=== PATIENT | female | born 1970 | race African-American/Black ===

== ENCOUNTER 2017-11-18 10:38 | Inpatient (IN) | payer OTHER ==
[~2017-11-18] VITALS: Ht 152.4 cm; Wt 91.6 kg
[2017-11-18 10:47] VITALS: BP 175/94; PULSE 88; RESP 16; TEMP 98.5; O2SAT 99
[2017-11-18] MEDS ORDERED: SODIUM CHLOR 0.9% 1000 ML INJ 1,000 ML IV SCH ×2 (15:27→17:36)
[2017-11-18] MEDS ORDERED: SODIUM CHLORIDE 0.9% FLUSH 10 ML FLUSH IV FLUSH PRN ×2 (15:30→18:45)
[2017-11-18 16:14] VITALS: BP 118/71; PULSE 104; RESP 18; O2SAT 98
[2017-11-18] MEDS ORDERED: VITA400T14 PO (16:20)
[2017-11-18] MEDS ORDERED: LISI10TA3 PO (16:20)
--- NOTE | 2017-11-18 16:29 | PD ---
HPI Chief Complaint: Diabetic Time Seen by Provider: 15:27 Travel History International Travel<30 days: No Contact w/Intl Traveler<30days: No Traveled to known affect area: No History of Present Illness HPI 47-year-old female presents to the ED for evaluation of 1 week history of decreased concentration, intermittent dizziness and mild nausea. She is a diabetic and states that she has not taken any medications and few months. She also complains of urinary urgency. She also complains of the bug bite sustained 3 or 4 days ago while staying in the hotel. She denies headache, vision changes, fever, chills, chest pain, palpitations, shortness of breath, abdominal pain, back pain, vaginal discharge, weakness of the extremities. She states that she is currently traveling between [place] in [place] for training for work. [facility] Past Medical History Diabetes: Yes Patient Takes Glucophage: No Medical other: Yes (hemmoroids ) ?: Unknown Past Surgical History Neurologic Surgery: Yes Social History Alcohol Use: No Tobacco Use: No Substance Use: No Allergies-Medications (Allergen,Severity, Reaction): Coded Allergies: metformin (Verified Allergy, Unknown, 11/18/17) penicillin G (Verified Allergy, Unknown, 11/18/17) Reported Meds & Prescriptions Reported Meds & Active Scripts Active Reported Vitamin D2 (Ergocalciferol) 400 Unit Tab 50,000 Units PO WEEKLY Lisinopril 10 Mg Tab 10 Mg PO DAILY Review of Systems Except as stated in HPI: all other systems reviewed are Neg Physical Exam Narrative GENERAL: Well-nourished, well-developed female in no acute distress. SKIN: Focused skin assessment warm/dry. 2-3 mm erythematous papule in the posterior hairline. Consistent with insect bite. No tenderness, warmth, induration, fluctuance noted. HEAD: Normocephalic. EYES: No scleral icterus. No injection or drainage. PERRLA. EOMI. NECK: Supple, trachea midline. No JVD or lymphadenopathy. CARDIOVASCULAR: Regular rate and rhythm without murmurs, gallops, or rubs. RESPIRATORY: Breath sounds are and equal bilaterally. No accessory muscle use. GASTROINTESTINAL: Abdomen soft, non-tender, nondistended. Active bowel sounds. MUSCULOSKELETAL: No cyanosis, or edema. Observed to walk with a normal gait. NEUROLOGICAL: Awake and alert. Cranial nerves II through XII intact. Motor and sensory grossly within normal limits. Five out of 5 muscle strength in all muscle groups. Normal speech. BACK: Nontender without obvious deformity. No CVA tenderness. Data Data Last Documented VS Vital Signs Date Time Temp Pulse Resp B/P (MAP) Pulse Ox O2 Delivery O2 Flow Rate FiO2 11/18/17 16:49 98 18 114/69 (84) 95 12 115/71 (86) 110 18 146/82 (103) 11/18/17 16:14 98 Room Air 11/18/17 10:47 98.5 Orders Orders Complete Blood Count With Diff (11/18/17 15:27) Comprehensive Metabolic Panel (11/18/17 15:27) Prothrombin Time / Inr (Pt) (11/18/17 15:27) Act Partial Throm Time (Ptt) (11/18/17 15:27) Urinalysis - C+S If Indicated (11/18/17 15:27) Iv Access Insert/Monitor (11/18/17 15:27) Ecg Monitoring (11/18/17 15:27) Oximetry (11/18/17 15:27) Sodium Chlor 0.9% 1000 Ml Inj (Ns 1000 M (11/18/17 15:27) Sodium Chloride 0.9% Flush (Ns Flush) (11/18/17 15:30) Beta Hydroxybutyrate (Acetone) (11/18/17 15:27) Ct Brain W/O Iv Contrast(Rout) (11/18/17 ) Ed Urine Pregnancytest Poc (11/18/17 16:31) Orthostatic Blood Pressure (11/18/17 16:31) Insulin Human Regular Inj (Novolin R Inj (11/18/17 17:45) Sodium Chlor 0.9% 1000 Ml Inj (Ns 1000 M (11/18/17 17:45) Sodium Chlor 0.9% 1000 Ml Inj (Ns 1000 M (11/18/17 17:36) Dext 5%-Nacl 0.9% 1000 Ml Inj (D5w-Ns 10 (11/18/17 17:36) Insulin Regular (Iv Infusion) (Novolin R (11/18/17 17:45) Potassium Chlor 20 Meq Premix (Kcl 20 Me (11/18/17 17:45) Potassium Chlor 20 Meq Premix (Kcl 20 Me (11/18/17 17:45) Potassium Chlor 20 Meq Premix (Kcl 20 Me (11/18/17 17:45) Potassium Chlor 20 Meq Premix (Kcl 20 Me (11/18/17 17:45) Hemoglobin (Hgb) A1c (11/18/17 17:36) Arterial Blood Gas (Abg) (11/18/17 ) Admit Order (Ed Use Only) (11/18/17 17:43) Labs Laboratory Tests Test 11/18/17 16:00 11/18/17 16:13 Urine Color LIGHT-YELLOW Urine Turbidity CLEAR Urine pH 5.0 Urine Specific [place] 1.033 Urine Protein NEG mg/dL Urine Glucose (UA) 1000 mg/dL Urine Ketones 40 mg/dL Urine Occult Blood NEG Urine Nitrite NEG Urine Bilirubin NEG Urine Urobilinogen LESS THAN 2.0 MG/DL Urine Leukocyte Esterase NEG Urine RBC 1 /hpf Urine WBC LESS THAN 1 /hpf Urine Squamous Epithelial Cells <1 /hpf Urine Amorphous Sediment RARE Microscopic Urinalysis Comment CULT NOT INDICATED White Blood Count 4.6 TH/MM3 Red Blood Count 5.64 MIL/MM3 Hemoglobin 12.5 GM/DL Hematocrit 39.8 % Mean Corpuscular Volume 70.6 FL Mean Corpuscular Hemoglobin 22.1 PG Mean Corpuscular Hemoglobin Concent 31.3 % Red Cell Distribution Width 19.4 % Platelet Count 172 TH/MM3 Mean Platelet Volume 10.8 FL Neutrophils (%) (Auto) 58.4 % Lymphocytes (%) (Auto) 34.3 % Monocytes (%) (Auto) 6.1 % Eosinophils (%) (Auto) 0.6 % Basophils (%) (Auto) 0.6 % Neutrophils # (Auto) 2.7 TH/MM3 Lymphocytes # (Auto) 1.6 TH/MM3 Monocytes # (Auto) 0.3 TH/MM3 Eosinophils # (Auto) 0.0 TH/MM3 Basophils # (Auto) 0.0 TH/MM3 CBC Comment AUTO DIFF Differential Comment AUTO DIFF CONFIRMED Platelet Estimate NORMAL Platelet Morphology Comment NORMAL Tear Drop Cells 1+ Ovalocytes 1+ Prothrombin Time 10.4 SEC Prothromb Time International Ratio 1.0 RATIO Activated Partial Thromboplast Time 25.1 SEC Blood Urea Nitrogen 16 MG/DL Creatinine 1.42 MG/DL Random Glucose 400 MG/DL Total Protein 7.8 GM/DL Albumin 3.9 GM/DL Calcium Level 9.5 MG/DL Alkaline Phosphatase 108 U/L Aspartate Amino Transf (AST/SGOT) 31 U/L Alanine Aminotransferase (ALT/SGPT) 47 U/L Total Bilirubin 0.4 MG/DL Sodium Level 136 MEQ/L Potassium Level 4.3 MEQ/L Chloride Level 101 MEQ/L Carbon Dioxide Level 23.6 MEQ/L Anion Gap 11 MEQ/L Estimat Glomerular Filtration Rate 48 ML/MIN B-Hydroxybutyrate 1.56 MMOL/L MDM Medical Decision Making Medical Screen Exam Complete: Yes Emergency Medical Condition: Yes Differential Diagnosis DKA versus hyperglycemia versus noncompliance versus metabolic derangement versus other Narrative Course 47-year-old female presents to the ED for evaluation of 1 week history of decreased concentration, intermittent dizziness and mild nausea. She is a diabetic and states that she has not taken any medications and few months. She also complains of urinary urgency. She also complains of the bug bite sustained 3 or 4 days ago while staying in the hotel. Patient afebrile, pulse 88, BP 175/94, blood sugar 351 on arrival. On exam this is a Afro-[place] female in no acute distress. Chest CTAB. Abdomen soft and nontender. No lower extremity edema. IV is established. Patient was administered 1 L normal saline. CBC: CBC 4.6. Hemoglobin 12.5. INR: 1.0. CMP: BUN 16, creatinine 1.42. Glucose 400. UA: No culture indicated. Beta hydroxybutyrate 1.56. Patient was administered 8 units insulin bolus IV and initiated on insulin drip. I discussed the results of the workup with the patient and recommended observation overnight. She is agreeable to this plan. I spoke with Dr. Herrera who agrees to accept the patient to the medicine service. Please see medicine notes for disposition. Mary Ann Branch Nov 18, 2017 16:29
[2017-11-18 16:32] LABS: AMORPHOUS SEDIMENT, URINE RARE; BILIRUBIN, URINE NEG (NEG); BLOOD, URINE NEG (NEG); GLUCOSE,URINE 1000 mg/dL (NEG); KETONE, URINE 40 mg/dL (NEG); NITRITE,URINE NEG (NEG); SQUAMOUS EPITHELIAL CELL URINE <1 /hpf (0-5); URINE COLOR LIGHT-YELLOW (YELLW/STRAW); URINE LEUKOCYTE ESTERASE NEG (NEG)
[2017-11-18 16:46] LABS: PROTHROMBIN TIME - PATIENT 10.4 SEC (9.8-11.6)
[2017-11-18 16:49] VITALS: BP_SYST 114; BP_SYST 115; BP_SYST 146; BP_DIAS 69; BP_DIAS 71; BP_DIAS 82; RESP 12; RESP 18
[2017-11-18 17:12] LABS: AUTOMATED NEUTROPHIL # 2.7 TH/MM3 (1.8-7.7); BASOPHIL % 0.6 % (0.0-2.0); EOSINOPHIL % 0.6 % (0.0-4.0); HEMATOCRIT 39.8 % (35.0-46.0); HEMOGLOBIN 12.5 GM/DL (11.6-15.3); LYMPH % 34.3 % (9.0-44.0); LYMPHOCYTE # 1.6 TH/MM3 (1.0-4.8); MEAN CELL VOLUME 70.6 FL (80.0-100.0); MEAN CORPUSCULAR HEMOGLOBIN 22.1 PG (27.0-34.0); MEAN CORPUSCULAR HGB CONC 31.3 % (32.0-36.0); MEAN PLATELET VOLUME 10.8 FL (7.0-11.0); MONO % 6.1 % (0.0-8.0); MONOCYTE # 0.3 TH/MM3 (0-0.9); NEUT % 58.4 % (16.0-70.0); PLATELET COUNT 172 TH/MM3 (150-450); RED BLOOD COUNT 5.64 MIL/MM3 (4.00-5.30); RED CELL DISTRIBUTION WIDTH 19.4 % (11.6-17.2); WHITE BLOOD COUNT 4.6 TH/MM3 (4.0-11.0)
[2017-11-18 17:14] LABS: ALKALINE PHOSPHATASE 108 U/L (45-117); TOTAL BILIRUBIN ADULT 0.4 MG/DL (0.2-1.0); TOTAL PROTEIN 7.8 GM/DL (6.4-8.2)
[2017-11-18 17:29] LABS: ALBUMIN 3.9 GM/DL (3.4-5.0); ALT (GPT) 47 U/L (10-53); AST (GOT) 31 U/L (15-37); BICARBONATE 23.6 MEQ/L (21.0-32.0); BLOOD UREA NITROGEN 16 MG/DL (7-18); CALCIUM 9.5 MG/DL (8.5-10.1); CHLORIDE 101 MEQ/L (98-107); CREATININE 1.42 MG/DL (0.50-1.00); GLOMERULAR FILTRATION RATE 48 ML/MIN (>89); GLUCOSE,RANDOM 400 MG/DL (74-106); SODIUM (NA) 136 MEQ/L (136-145)
[2017-11-18] MEDS ORDERED: DEXT 5%-NACL 0.9% 1000 ML INJ 1,000 ML IV SCH (17:36)
[2017-11-18] MEDS ORDERED: INSULIN REGULAR (IV INFUSION) 100 UNITS in SODIUM CHLORIDE 0.9% INJ 99 ML IV PRN ×2 (17:45→18:30)
[2017-11-18] MEDS ORDERED: SODIUM CHLOR 0.9% 1000 ML INJ 1,000 ML IV ONE (17:45)
[2017-11-18] MEDS ORDERED: POTASSIUM CHLOR 20 MEQ PREMIX 100 ML IV PRN ×4 (17:45)
[2017-11-18] MEDS ORDERED: INSULIN HUMAN REGULAR 1,000 UNITS/10 ML VIAL IV PUSH ONE (17:45)
--- NOTE | 2017-11-18 18:03 | PD ---
Physical Exam Date Seen by Provider: Nov 18, 2017 Time Seen by Provider: 17:00 Narrative I, Dr. Wang, have reviewed the advance practice practitioner's documentation and am in agreement, met with the patient face to face, made the diagnosis, and the medical decision making was done by me. *My assessment and Findings: Patient seen and evaluated with PA, please see PA note for further details. She has not been feeling well, nauseous, abdominal discomfort, not feeling right, blood sugars have been out of control, she has not been able to get her diabetes medications fail. On evaluation, abdomen is fairly benign. The rest of the exam was fairly unremarkable and I do not see any focal neurological deficits. Laboratory Tests Test 11/18/17 16:00 11/18/17 16:13 Urine Glucose (UA) 1000 mg/dL (NEG) Urine Ketones 40 mg/dL (NEG) Red Blood Count 5.64 MIL/MM3 (4.00-5.30) Mean Corpuscular Volume 70.6 FL (80.0-100.0) Mean Corpuscular Hemoglobin 22.1 PG (27.0-34.0) Mean Corpuscular Hemoglobin Concent 31.3 % (32.0-36.0) Red Cell Distribution Width 19.4 % (11.6-17.2) Creatinine 1.42 MG/DL (0.50-1.00) Random Glucose 400 MG/DL (74-106) Estimat Glomerular Filtration Rate 48 ML/MIN (>89) B-Hydroxybutyrate 1.56 MMOL/L (0.00-0.39) Lab work shows blood sugar 400 and ketones are elevated. IV fluids and insulin was given in the ER. CAT scan was also ordered for further evaluation of the abdomen. Case is discussed with Dr. Herrera for admission for further treatment. Hyperglycemia protocol initiated. Data Data Last Documented VS Vital Signs Date Time Temp Pulse Resp B/P (MAP) Pulse Ox O2 Delivery O2 Flow Rate FiO2 11/18/17 16:49 98 18 114/69 (84) 95 12 115/71 (86) 110 18 146/82 (103) 11/18/17 16:14 98 Room Air 11/18/17 10:47 98.5 Orders Orders Complete Blood Count With Diff (11/18/17 15:27) Comprehensive Metabolic Panel (11/18/17 15:27) Prothrombin Time / Inr (Pt) (11/18/17 15:27) Act Partial Throm Time (Ptt) (11/18/17 15:27) Urinalysis - C+S If Indicated (11/18/17 15:27) Iv Access Insert/Monitor (11/18/17 15:27) Ecg Monitoring (11/18/17 15:27) Oximetry (11/18/17 15:27) Sodium Chlor 0.9% 1000 Ml Inj (Ns 1000 M (11/18/17 15:27) Sodium Chloride 0.9% Flush (Ns Flush) (11/18/17 15:30) Beta Hydroxybutyrate (Acetone) (11/18/17 15:27) Ct Brain W/O Iv Contrast(Rout) (11/18/17 ) Ed Urine Pregnancytest Poc (11/18/17 16:31) Orthostatic Blood Pressure (11/18/17 16:31) Insulin Human Regular Inj (Novolin R Inj (11/18/17 17:45) Sodium Chlor 0.9% 1000 Ml Inj (Ns 1000 M (11/18/17 17:45) Sodium Chlor 0.9% 1000 Ml Inj (Ns 1000 M (11/18/17 17:36) Dext 5%-Nacl 0.9% 1000 Ml Inj (D5w-Ns 10 (11/18/17 17:36) Insulin Regular (Iv Infusion) (Novolin R (11/18/17 17:45) Potassium Chlor 20 Meq Premix (Kcl 20 Me (11/18/17 17:45) Potassium Chlor 20 Meq Premix (Kcl 20 Me (11/18/17 17:45) Potassium Chlor 20 Meq Premix (Kcl 20 Me (11/18/17 17:45) Potassium Chlor 20 Meq Premix (Kcl 20 Me (11/18/17 17:45) Hemoglobin (Hgb) A1c (11/18/17 17:36) Arterial Blood Gas (Abg) (11/18/17 ) Admit Order (Ed Use Only) (11/18/17 17:43) Labs Laboratory Tests Test 11/18/17 16:00 11/18/17 16:13 Urine Color LIGHT-YELLOW Urine Turbidity CLEAR Urine pH 5.0 Urine Specific [place] 1.033 Urine Protein NEG mg/dL Urine Glucose (UA) 1000 mg/dL Urine Ketones 40 mg/dL Urine Occult Blood NEG Urine Nitrite NEG Urine Bilirubin NEG Urine Urobilinogen LESS THAN 2.0 MG/DL Urine Leukocyte Esterase NEG Urine RBC 1 /hpf Urine WBC LESS THAN 1 /hpf Urine Squamous Epithelial Cells <1 /hpf Urine Amorphous Sediment RARE Microscopic Urinalysis Comment CULT NOT INDICATED White Blood Count 4.6 TH/MM3 Red Blood Count 5.64 MIL/MM3 Hemoglobin 12.5 GM/DL Hematocrit 39.8 % Mean Corpuscular Volume 70.6 FL Mean Corpuscular Hemoglobin 22.1 PG Mean Corpuscular Hemoglobin Concent 31.3 % Red Cell Distribution Width 19.4 % Platelet Count 172 TH/MM3 Mean Platelet Volume 10.8 FL Neutrophils (%) (Auto) 58.4 % Lymphocytes (%) (Auto) 34.3 % Monocytes (%) (Auto) 6.1 % Eosinophils (%) (Auto) 0.6 % Basophils (%) (Auto) 0.6 % Neutrophils # (Auto) 2.7 TH/MM3 Lymphocytes # (Auto) 1.6 TH/MM3 Monocytes # (Auto) 0.3 TH/MM3 Eosinophils # (Auto) 0.0 TH/MM3 Basophils # (Auto) 0.0 TH/MM3 CBC Comment AUTO DIFF Prothrombin Time 10.4 SEC Prothromb Time International Ratio 1.0 RATIO Activated Partial Thromboplast Time 25.1 SEC Blood Urea Nitrogen 16 MG/DL Creatinine 1.42 MG/DL Random Glucose 400 MG/DL Total Protein 7.8 GM/DL Albumin 3.9 GM/DL Calcium Level 9.5 MG/DL Alkaline Phosphatase 108 U/L Aspartate Amino Transf (AST/SGOT) 31 U/L Alanine Aminotransferase (ALT/SGPT) 47 U/L Total Bilirubin 0.4 MG/DL Sodium Level 136 MEQ/L Potassium Level 4.3 MEQ/L Chloride Level 101 MEQ/L Carbon Dioxide Level 23.6 MEQ/L Anion Gap 11 MEQ/L Estimat Glomerular Filtration Rate 48 ML/MIN B-Hydroxybutyrate 1.56 MMOL/L [facility] Medical Record Reviewed: Yes Supervised Visit with DAVID: Yes Diagnosis Primary Impression: DKA (diabetic ketoacidoses) Admitting Information Admitting Physician Requests: Admit Leighton Wang MD Nov 18, 2017 18:03
[2017-11-18 18:04] LABS: OVALOCYTES 1+ (NORMAL); TEARDROP RBCS 1+ (NORMAL)
[2017-11-18] MEDS ORDERED: MISC INFORMATION OTHER ONE (18:30)
[2017-11-18] MEDS ORDERED: DEXTROSE 50% IN WATER 50 ML VIAL(D50) IV PUSH PRN ×2 (18:30→20:45)
[2017-11-18] MEDS ORDERED: GLUCAGON 1 MG/ML VIAL OTHER PRN ×2 (18:30→20:45)
[2017-11-18] MEDS ORDERED: NALOXONE HCL 0.4 MG/ML AMP IV PUSH PRN (18:45)
[2017-11-18] MEDS ORDERED: LACTULOSE SYRUP 20 GM/30 ML CUP PO PRN (18:45)
[2017-11-18] MEDS ORDERED: oxyCODONE/ACETAMINOPHEN 5 MG/325 MG TAB PO PRN (18:45)
[2017-11-18] MEDS ORDERED: ACETAMINOPHEN 325 MG TAB PO PRN ×2 (18:45)
[2017-11-18] MEDS ORDERED: BISACODYL 10 MG SUPP RECTAL PRN (18:45)
[2017-11-18] MEDS ORDERED: MAGNESIUM HYDROXIDE SUSP 30 ML CUP PO PRN (18:45)
[2017-11-18] MEDS ORDERED: ZOLPIDEM TARTRATE 5 MG TAB PO PRN (18:45)
[2017-11-18] MEDS ORDERED: PROCHLORPERAZINE 25 MG SUPP RECTAL PRN (18:45)
[2017-11-18] MEDS ORDERED: SENNOSIDES 8.6 MG TAB PO PRN (18:45)
[2017-11-18] MEDS ORDERED: oxyCODONE/ACETAMINOPHEN 10 MG/325 MG TAB PO PRN (18:45)
[2017-11-18] MEDS ORDERED: MORPHINE SULFATE 2 MG/ML SYRINGE IV PUSH PRN (18:45)
--- NOTE | 2017-11-18 18:51 | HHI.HP ---
[facility] Non-Staff Admission Diagnosis hyperglycemia Diagnoses: (1) Hyperglycemia Diagnosis: Principal (2) Hyperglycemia due to type 2 diabetes mellitus Diagnosis: Principal (3) Hypertension Diagnosis: Secondary (4) Renal insufficiency Diagnosis: Principal (5) CKD (chronic kidney disease) stage 2, GFR 60-89 ml/min Diagnosis: Principal (6) Obese Diagnosis: Secondary (7) Noncompliance Diagnosis: Principal Chief Complaint: Diabetes and hyperglycemia Travel History International Travel<30 Days: No Contact w/Intl Traveler <30 Da: No Traveled to Known Affected Are: No History of Present Illness Patient is a 47-year-old -[place] female who presented to the emergency department for evaluation of at least a week history of decreased concentration , intermittent dizziness and mild nausea. Patient is a known diabetic and has not been taking any medication for the past few months. She also complains of urinary urgency. Also complains of a bug bite sustained for 4 days ago while staying in a hotel. Patient denies any headache she denies any visual changes denies any fever denies any chills denies any chest pain denies any palpitations denies any shortness of breath denies any abdominal pain denies any back pain denies any vaginal discharge denies any weakness of extremities. Patient states she is traveling between [place] in [place] for training for work has moved down here from [place] recently Had been on 2 diabetic medications which he stopped and was taking lisinopril possibly 10 mg daily as well as a vitamin D Patient will be placed on an insulin drip as well as lots of fluids. Hopefully her hyperglycemia will improve tomorrow and possibly can be placed on glipizide or Glucotrol for her diabetes and be sent home in the next 24-48 Review of Systems Constitutional: COMPLAINS OF: Fatigue, Dizziness, Change in appetite, DENIES: Diaphoretic episodes, Fever, Weight gain, Weight loss, Chills, Night Sweats Endocrine: DENIES: Abnorml menstrual pattern, Heat/cold intolerance, Polydipsia , Polyuria, Polyphagia Eyes: DENIES: Blurred vision, Diplopia, Eye inflammation, Eye pain, Vision loss , Photosensitivity, Double Vision Ears, nose, mouth, throat: DENIES: Tinnitus, Hearing loss, Vertigo, Nasal discharge, Oral lesions, Throat pain, Hoarseness, Ear Pain, Running Nose, Epistaxis, Sinus Pain, Toothache, Odynophagia Respiratory: DENIES: Apneas, Cough, Snoring, Wheezing, Hemoptysis, Sputum production, Shortness of breath Cardiovascular: DENIES: Chest pain, Palpitations, Syncope, Dyspnea on Exertion , PND, Lower Extremity Edema, Orthopnea, Claudication Gastrointestinal: COMPLAINS OF: Nausea, DENIES: Abdominal pain, Black stools, Bloody stools, Constipation, Diarrhea, Vomiting, Difficulty Swallowing, Anorexia Genitourinary: COMPLAINS OF: Urinary frequency, DENIES: Abnormal vaginal bleeding, Dysmenorrhea, Dyspareunia, Sexual dysfunction, Urinary incontinence, Urgency, Hematuria, Dysuria, Nocturia, Vaginal discharge Musculoskeletal: DENIES: Joint pain, Muscle aches, Stiffness, Joint Swelling, Back pain, Neck pain Integumentary: DENIES: Abnormal pigmentation, Pruritus, Rash, Nail changes, Breast masses, Breast skin changes, Nipple discharge Hematologic/lymphatic: DENIES: Bruising, Lymphadenopathy Immunologic/allergic: DENIES: Eczema, Urticaria Neurologic: DENIES: Abnormal gait, Headache, Localized weakness, Paresthesias, Seizures, Speech Problems, Tremor, Poor Balance Psychiatric: DENIES: Anxiety, Confusion, Mood changes, Depression, Hallucinations, Agitation, Suicidal Ideation, Homicidal Ideation, Delusions Except as stated in HPI: all other systems reviewed are Neg Past Family Social History Past Medical History Diabetes mellitus poorly controlled Hypertension Renal insufficiency with history of bladder corrective surgery when she was younger Vitamin D issues Past Surgical History Urological surgery to correct issues with urinary retention/urinary incontinence Reported Medications Reported Meds & Active Scripts Active Reported Vitamin D2 (Ergocalciferol) 400 Unit Tab 50,000 Units PO WEEKLY Lisinopril 10 Mg Tab 10 Mg PO DAILY Allergies: Coded Allergies: metformin (Verified Allergy, Unknown, 11/18/17) penicillin G (Verified Allergy, Unknown, 11/18/17) Active Ordered Medications Inpatient Medications Acetaminophen (Tylenol) 650 mg Q6H PRN PO PAIN SCALE 1 TO 2; Start 11/18/17 at 18:45; Status UNV Bisacodyl (Dulcolax Supp) 10 mg DAILY PRN RECTAL SEVERE CONSITIPATION; Start at 18:45; Status UNV Dextrose (D50w (Vial) Inj) 50 ml UNSCH PRN IV PUSH SEE LABEL COMMENTS; Start at 18:30; Status UNV Dextrose/Sodium Chloride 1,000 ml @ 200 mls/hr Q5H IV ; Start 11/18/17 at 17:36 Enoxaparin Sodium (Lovenox Inj) 30 mg Q24H SQ ; Start 11/18/17 at 18:45; Status UNV Glucagon (Glucagon Inj) 1 mg UNSCH PRN OTHER HYPOGLYCEMIA-SEE COMMENTS; Start 11/18/17 at 18:30; Status UNV Insulin Human Regular (NovoLIN R INJ) 8 units ONCE ONCE IV PUSH Last administered on 11/18/17at 18:33; Start 11/18/17 at 17:45; Stop 11/18/17 at 17:46 ; Status DC Insulin Human Regular 100 units/ Sodium Chloride 100 ml @ 0.5 mls/hr TITRATE PRN IV Blood Glucose Control; Start 11/18/17 at 18:30; Status UNV Lactulose (Lactulose Liq) 30 ml DAILY PRN PO SEVERE CONSITIPATION; Start at 18:45; Status UNV Magnesium Hydroxide (Milk Of Magnesia Liq) 30 ml Q12H PRN PO Mild constipation ; Start 11/18/17 at 18:45; Status UNV Miscellaneous Information 1 ONCE ONCE OTHER ; Start 11/18/17 at 18:30; Stop at 18:31; Status UNV Morphine Sulfate (Morphine Inj) 4 mg Q3H PRN IV PUSH BREAKTHROUGH PAIN; Start 11/18/17 at 18:45; Status UNV Naloxone HCl (Narcan Inj) 0.4 mg UNSCH PRN IV PUSH SEE LABEL COMMENTS; Start at 18:45; Status UNV Non-Formulary Medication 50,000 units WEEKLY PO ; Start 11/18/17 at 18:45; Status UNV Ondansetron HCl (Zofran Inj) 4 mg Q6H PRN IVP NAUSEA OR VOMITING; Start at 18:45; Status UNV Oxycodone/ Acetaminophen (Percocet 5-325 Mg) 1 tab Q6H PRN PO PAIN SCALE 3 TO 5; Start 11/18/17 at 18:45; Status UNV Oxycodone/ Acetaminophen (Percocet 10-325 Mg) 1 tab Q6H PRN PO PAIN SCALE 6 TO 10; Start 11/18/17 at 18:45; Status UNV Potassium Chloride 100 ml @ 50 mls/hr Q2H PRN IV SEE LABEL COMMENTS; Start at 17:45 Prochlorperazine (Compazine Supp) [address] NAUSEA OR VOMITING; Start 11/18/17 at 18:45; Status UNV Senna/Docusate Sodium (Marie-Colace) 1 tab BID PO ; Start 11/18/17 at 21:00; Status UNV Sennosides (Senokot) 17.2 mg Q12H PRN PO Moderate constipation; Start 11/18/17 at 18:45; Status UNV Sodium Chloride (NS Flush) 2 ml BID IV FLUSH ; Start 11/18/17 at 21:00; Status UNV Zolpidem Tartrate (Ambien) 5 mg HS PRN PO INSOMNIA; Start 11/18/17 at 18:45; Status UNV Family History Mother with diabetes Hypertension Hyperlipidemia Coronary artery disease and history of CABG Renal insufficiency Father unknown Social History Denies any tobacco alcohol or illicits Physical Exam Vital Signs Vital Signs Date Time Temp Pulse Resp B/P (MAP) Pulse Ox O2 Delivery O2 Flow Rate FiO2 11/18/17 16:49 98 18 114/69 (84) 95 12 115/71 (86) 110 18 146/82 (103) 11/18/17 16:14 104 18 118/71 (87) 98 Room Air 11/18/17 10:47 98.5 88 16 175/94 (121) 99 Physical Exam GENERAL: This is a well-nourished, well-developed patient, in no apparent distress. SKIN: No rashes, ecchymoses or lesions. Cool and dry. HEAD: Atraumatic. Normocephalic. No temporal or scalp tenderness. EYES: Pupils equal round and reactive. Extraocular motions intact. No scleral icterus. No injection or drainage. ENT: Nose without bleeding, purulent drainage or septal hematoma. Throat without erythema, tonsillar hypertrophy or exudate. Uvula midline. Airway patent. NECK: Trachea midline. No JVD or lymphadenopathy. Supple, nontender, no meningeal signs. CARDIOVASCULAR: Regular rate and rhythm without murmurs, gallops, or rubs. S1- S2 no S3 or S4 RESPIRATORY: Clear to auscultation. Breath sounds equal bilaterally. No wheezes , rales, or rhonchi. GASTROINTESTINAL: Abdomen soft, non-tender, nondistended. No hepato-splenomegaly , or palpable masses. No guarding. Obese MUSCULOSKELETAL: Extremities without clubbing, cyanosis, or edema. No joint tenderness, effusion, or edema noted. No calf tenderness. Negative Homans sign bilaterally. NEUROLOGICAL: Awake and alert. Cranial nerves II through XII intact. Motor and sensory grossly within normal limits. Five out of 5 muscle strength in all muscle groups. Normal speech. Insight and judgment is good Mood and behavior is appropriate Laboratory Laboratory Tests Test 11/18/17 16:00 11/18/17 16:13 11/18/17 18:15 Urine Color LIGHT-YELLOW Urine Turbidity CLEAR Urine pH 5.0 Urine Specific S [place] 1.033 Urine Protein NEG Urine Glucose (UA) 1000 Urine Ketones 40 Urine Occult Blood NEG Urine Nitrite NEG Urine Bilirubin NEG Urine Urobilinogen LESS THAN 2.0 Urine Leukocyte Esterase NEG Urine RBC 1 Urine WBC LESS THAN 1 Urine Squamous Epithelial Cells <1 Urine Amorphous Sediment RARE Microscopic Urinalysis Comment CULT NOT INDICATED White Blood Count 4.6 Red Blood Count 5.64 Hemoglobin 12.5 Hematocrit 39.8 Mean Corpuscular Volume 70.6 Mean Corpuscular Hemoglobin 22.1 Mean Corpuscular Hemoglobin Concent 31.3 Red Cell Distribution Width 19.4 Platelet Count 172 Mean Platelet Volume 10.8 Neutrophils (%) (Auto) 58.4 Lymphocytes (%) (Auto) 34.3 Monocytes (%) (Auto) 6.1 Eosinophils (%) (Auto) 0.6 Basophils (%) (Auto) 0.6 Neutrophils # (Auto) 2.7 Lymphocytes # (Auto) 1.6 Monocytes # (Auto) 0.3 Eosinophils # (Auto) 0.0 Basophils # (Auto) 0.0 CBC Comment AUTO DIFF Differential Comment AUTO DIFF CONFIRMED Platelet Estimate NORMAL Platelet Morphology Comment NORMAL Tear Drop Cells 1+ Ovalocytes 1+ Prothrombin Time 10.4 Prothromb Time International Ratio 1.0 Activated Partial Thromboplast Time 25.1 Blood Urea Nitrogen 16 Creatinine 1.42 Random Glucose 400 Total Protein 7.8 Albumin 3.9 Calcium Level 9.5 Alkaline Phosphatase 108 Aspartate Amino Transf (AST/SGOT) 31 Alanine Aminotransferase (ALT/SGPT) 47 Total Bilirubin 0.4 Sodium Level 136 Potassium Level 4.3 Chloride Level 101 Carbon Dioxide Level 23.6 Anion Gap 11 Estimat Glomerular Filtration Rate 48 B-Hydroxybutyrate 1.56 Blood Gas Puncture Site RT RADIAL Blood Gas Patient Temperature 98.6 Blood Gas HCO3 19 Blood Gas Base Excess -4.4 Blood Gas Oxygen Saturation 97 Arterial Blood pH 7.41 Arterial Blood Partial Pressure CO2 31 Arterial Blood Partial Pressure O2 124 Arterial Blood Oxygen Content 15.2 Arterial Blood Carboxyhemoglobin 1.0 Arterial Blood Methemoglobin 0.8 Blood Gas Hemoglobin 11.0 Oxygen Delivery Device ROOM AIR Blood Gas Inspired Oxygen 21 Result Diagram: 11/18/17 1613 11/18/17 161 Andrésrinjak VTE Risk Assessment Joe VTE Risk Assessment: Mod/High Risk (score >= 2) Caprini Risk Assessment Model Point Value = 1 Point Value = 2 Point Value = 3 Point Value = 5 Age 41-60 Minor surgery BMI > 25 kg/m2 Swollen legs Varicose veins or History of unexplained or recurrent spontaneous Oral contraceptives or hormone replacement Sepsis (< 1 month) Serious lung disease, including pneumonia (< 1 month) Abnormal pulmonary function Acute myocardial infarction Congestive heart failure (< 1 month) History of inflammatory bowel disease Medical patient at bed rest Age 61-74 Arthroscopic surgery Major open surgery (> 45 min) Laparoscopic surgery (> 45 min) Malignancy Confined to bed (> 72 hours) Immobilizing plaster cast Central venous access Age >= 75 History of VTE Family history of VTE Factor V Leiden Prothrombin [id number] Lupus anticoagulant Anticardiolipin antibodies Elevated serum homocysteine Heparin-induced thrombocytopenia Other congenital or acquired thrombophilia Stroke (< 1 month) Elective arthroplasty Hip, pelvis, or leg fracture Acute spinal cord injury (< 1 month) Prophylaxis Regimen Total Risk Factor Score Risk Level Prophylaxis Regimen 0-1 Low Early ambulation 2 Moderate Order ONE of the following: *Sequential Compression Device (SCD) *Heparin 5000 units SQ BID 3-4 Higher Order ONE of the following medications: *Heparin 5000 units SQ TID *Enoxaparin/Lovenox 40 mg SQ daily (WT < 150 kg, CrCl > 30 mL/min) *Enoxaparin/Lovenox 30 mg SQ daily (WT < 150 kg, CrCl > 10-29 mL/min) *Enoxaparin/Lovenox 30 mg SQ BID (WT < 150 kg, CrCl > 30 mL/min) AND/OR *Sequential Compression Device (SCD) 5 or more Highest Order ONE of the following medications: *Heparin 5000 units SQ TID (Preferred with Epidurals) *Enoxaparin/Lovenox 40 mg SQ daily (WT < 150 kg, CrCl > 30 mL/min) *Enoxaparin/Lovenox 30 mg SQ daily (WT < 150 kg, CrCl > 10-29 mL/min) *Enoxaparin/Lovenox 30 mg SQ BID (WT < 150 kg, CrCl > 30 mL/min) AND *Sequential Compression Device (SCD) Assessment and Plan Assessment and Plan Uncontrolled diabetes due to noncompliance of medication Continue on IV fluids 200 mL's per hour of normal saline Continue on insulin drip Renal insufficiency continue on IV fluids Dehydration continue on IV fluids Hypertension have available Catapres and hold her lisinopril due to renal insufficiency Vitamin D deficiency continue home medication Will probably need to be started on p.o. glycemic medications will either glipizide or Glucotrol DVT prophylaxis with heparin GI prophylaxis with Pepcid Code Status full code Discussed Condition With RN AND PT AND PA AND ER PHYSICIAN AND FAMILY AT BEDSIDE Physician Certification 2 Midnight Certification Type: Admission for Inpatient Services Order for Inpatient Services The services are ordered in accordance with Medicare regulations or non- Medicare payer requirements, as applicable. In the case of services not specified as inpatient-only, they are appropriately provided as inpatient services in accordance with the 2-midnight benchmark. Estimated LOS (days): 2 days is the estimated time the patient will need to remain in the hospital, assuming treatment plan goals are met and no additional complications. Post-Hospital Plan: Home Rj Herrera DO Nov 18, 2017 18:51
[2017-11-18 19:06] VITALS: BP 134/90; PULSE 90; RESP 14; O2SAT 100
--- NOTE | 2017-11-18 19:11 | RADRPT ---
EXAM DATE/TIME: 11/18/2017 18:52 [facility] COMPARISON: No previous studies available for comparison. INDICATIONS : Patient feeling poorly. RADIATION DOSE: 56.35 CTDIvol (mGy) MEDICAL HISTORY : Diabetes mellitus type 2. SURGICAL HISTORY : None. ENCOUNTER: Initial ACUITY: 1 day PAIN SCALE: 1/10 LOCATION: Bilateral cranial TECHNIQUE: Multiple contiguous axial images were obtained of the head. Using automated exposure control and adj ustment of the mA and/or kV according to patient size, radiation dose was kept as low as reasonably a chievable to obtain optimal diagnostic quality images. DICOM format image data is available electro nically for review and comparison. FINDINGS: CEREBRUM: The ventricles are normal for age. No evidence of midline shift, mass lesion, hemorrhage or acute in farction. No extra-axial fluid collections are seen. POSTERIOR FOSSA: The cerebellum and brainstem are intact. The 4th ventricle is midline. The cerebellopontine angle i s unremarkable. EXTRACRANIAL: The visualized portion of the orbits is intact. SKULL: The calvaria is intact. No evidence of skull fracture. CONCLUSION: No acute disease. Mendel Johnson MD on November 18, 2017 at 19:09 Board Certified Radiologist. This report was verified electronically.
[2017-11-18] MEDS ORDERED: MORPHINE SULFATE 4 MG/ML INJ IV PUSH PRN ×2 (19:15)
[2017-11-18] MEDS ORDERED: PILL SPLITTER OTHER PRN (19:15)
[2017-11-18 20:00] VITALS: BP 113/72; PULSE 78; RESP 20; TEMP 96.4; O2SAT 99
[2017-11-18] MEDS: ENOXAPARIN SODIUM 40 MG/0.4 ML SYRINGE SQ SCH (20:00)
[2017-11-18] MEDS: SODIUM CHLORIDE 0.9% FLUSH 10 ML FLUSH IV FLUSH SCH (21:13)
[2017-11-18] MEDS: SODIUM CHLOR 0.9% 1000 ML INJ 1,000 ML IV SCH (21:13)
[2017-11-18] MEDS: INSULIN ASPART SUPPLEMENTAL SCALE SQ SCH (21:14)
[2017-11-18] MEDS: FAMOTIDINE 20 MG TAB PO SCH (21:14)
[2017-11-18] MEDS: DOCUSATE SODIUM 50 MG/SENNA 8.6 MG TAB PO SCH (21:14)
[2017-11-18] MEDS: ONDANSETRON HCL 4 MG/2 ML VIAL IVP PRN (21:15)
[2017-11-18 22:36] LABS: BICARBONATE 23.4 MEQ/L (21.0-32.0); CALCIUM 8.2 MG/DL (8.5-10.1); CREATININE 1.02 MG/DL (0.50-1.00)
[2017-11-18 23:44] LABS: TROPONIN I LESS THAN 0.02 NG/ML (0.02-0.05)
[2017-11-19] MEDS: SODIUM CHLOR 0.9% 1000 ML INJ 1,000 ML IV SCH ×4 (00:35→21:02)
[2017-11-19] MEDS: ONDANSETRON HCL 4 MG/2 ML VIAL IVP PRN ×3 (07:53→21:12)
[2017-11-19 08:00] VITALS: BP 123/73; PULSE 83; RESP 16; TEMP 96.9; O2SAT 99
[2017-11-19] MEDS: INSULIN ASPART SUPPLEMENTAL SCALE SQ SCH ×4 (08:00→21:26)
[2017-11-19 08:30] LABS: AUTOMATED NEUTROPHIL # 1.5 TH/MM3 (1.8-7.7); BASOPHIL % 0.6 % (0.0-2.0); EOSINOPHIL % 1.2 % (0.0-4.0); HEMATOCRIT 33.7 % (35.0-46.0); HEMOGLOBIN 10.6 GM/DL (11.6-15.3); LYMPH % 46.6 % (9.0-44.0); LYMPHOCYTE # 1.7 TH/MM3 (1.0-4.8); MEAN CELL VOLUME 69.3 FL (80.0-100.0); MEAN CORPUSCULAR HEMOGLOBIN 21.9 PG (27.0-34.0); MEAN CORPUSCULAR HGB CONC 31.5 % (32.0-36.0); MEAN PLATELET VOLUME 11.7 FL (7.0-11.0); MONO % 8.3 % (0.0-8.0); MONOCYTE # 0.3 TH/MM3 (0-0.9); NEUT % 43.3 % (16.0-70.0); PLATELET COUNT 155 TH/MM3 (150-450); RED BLOOD COUNT 4.85 MIL/MM3 (4.00-5.30); RED CELL DISTRIBUTION WIDTH 19.3 % (11.6-17.2); WHITE BLOOD COUNT 3.5 TH/MM3 (4.0-11.0)
[2017-11-19] MEDS: DOCUSATE SODIUM 50 MG/SENNA 8.6 MG TAB PO SCH ×2 (09:00→21:02)
[2017-11-19] MEDS: FAMOTIDINE 20 MG TAB PO SCH ×2 (09:00→21:02)
[2017-11-19] MEDS: SODIUM CHLORIDE 0.9% FLUSH 10 ML FLUSH IV FLUSH SCH ×2 (09:00→21:03)
[2017-11-19 09:14] LABS: ALBUMIN 3.2 GM/DL (3.4-5.0); ALKALINE PHOSPHATASE 82 U/L (45-117); ALT (GPT) 32 U/L (10-53); AST (GOT) 20 U/L (15-37); BICARBONATE 20.3 MEQ/L (21.0-32.0); BLOOD UREA NITROGEN 11 MG/DL (7-18); CALCIUM 8.3 MG/DL (8.5-10.1); CHLORIDE 110 MEQ/L (98-107); CREATININE 0.81 MG/DL (0.50-1.00); FREE T4 1.06 NG/DL (0.76-1.46); GLOMERULAR FILTRATION RATE 92 ML/MIN (>89); GLUCOSE,RANDOM 140 MG/DL (74-106); MAGNESIUM 1.9 MG/DL (1.5-2.5); SODIUM (NA) 141 MEQ/L (136-145); TOTAL BILIRUBIN ADULT 0.4 MG/DL (0.2-1.0); TROPONIN I LESS THAN 0.02 NG/ML (0.02-0.05)
[2017-11-19 09:30] LABS: OVALOCYTES 1+ (NORMAL)
--- NOTE | 2017-11-19 10:56 | HHI.PR ---
Subjective Remarks Patient is a 47-year-old -German female who presented to the emergency department for evaluation of at least a week history of decreased concentration , intermittent dizziness and mild nausea. Patient is a known diabetic and has not been taking any medication for the past few months. She also complains of urinary urgency. Also complains of a bug bite sustained for 4 days ago while staying in a hotel. Patient denies any headache she denies any visual changes denies any fever denies any chills denies any chest pain denies any palpitations denies any shortness of breath denies any abdominal pain denies any back pain denies any vaginal discharge denies any weakness of extremities. Patient states she is traveling between [place] in [place] for training for work has moved down here from [place] recently Had been on 2 diabetic medications which he stopped and was taking lisinopril possibly 10 mg daily as well as a vitamin D Patient will be placed on an insulin drip as well as lots of fluids. Hopefully her hyperglycemia will improve tomorrow and possibly can be placed on glipizide or Glucotrol for her diabetes and be sent home in the next 11-19 patient cannot tell me what her allergy is to metformin We will discontinue it as an allergy We will start her on metformin 500 twice daily we will see how her sugars run today and if she can tolerate a diet Have discussed with patient and RN and family Objective Vitals Vital Signs Date Time Temp Pulse Resp B/P (MAP) Pulse Ox O2 Delivery O2 Flow Rate FiO2 11/19/17 08:00 96.9 83 16 123/73 (90) 99 11/18/17 22:24 11/18/17 20:00 96.4 78 20 113/72 (86) 99 11/18/17 19:06 90 14 134/90 (105) 100 Room Air 11/18/17 16:49 98 18 114/69 (84) 95 12 115/71 (86) 110 18 146/82 (103) 11/18/17 16:14 104 18 118/71 (87) 98 Room Air I/O 11/18/17 11/18/17 11/18/17 11/19/17 11/19/17 11/19/17 07:00 15:00 23:00 07:00 15:00 23:00 Intake Total 3000 ml Balance 3000 ml Intake IV Total 3000 ml Result Diagram: 3/29/18 0551 11/19/17 0551 Other Results Laboratory Tests Test 11/18/17 16:00 11/18/17 16:13 11/18/17 18:15 11/18/17 21:45 Urine Color LIGHT-YELLOW Urine Turbidity CLEAR Urine pH 5.0 Urine Specific [place] 1.033 Urine Protein NEG mg/dL Urine Glucose (UA) 1000 mg/dL Urine Ketones 40 mg/dL Urine Occult Blood NEG Urine Nitrite NEG Urine Bilirubin NEG Urine Urobilinogen LESS THAN 2.0 MG/DL Urine Leukocyte Esterase NEG Urine RBC 1 /hpf Urine WBC LESS THAN 1 /hpf Urine Squamous Epithelial Cells <1 /hpf Urine Amorphous Sediment RARE Microscopic Urinalysis Comment CULT NOT INDICATED White Blood Count 4.6 TH/MM3 Red Blood Count 5.64 MIL/MM3 Hemoglobin 12.5 GM/DL Hematocrit 39.8 % Mean Corpuscular Volume 70.6 FL Mean Corpuscular Hemoglobin 22.1 PG Mean Corpuscular Hemoglobin Concent 31.3 % Red Cell Distribution Width 19.4 % Platelet Count 172 TH/MM3 Mean Platelet Volume 10.8 FL Neutrophils (%) (Auto) 58.4 % Lymphocytes (%) (Auto) 34.3 % Monocytes (%) (Auto) 6.1 % Eosinophils (%) (Auto) 0.6 % Basophils (%) (Auto) 0.6 % Neutrophils # (Auto) 2.7 TH/MM3 Lymphocytes # (Auto) 1.6 TH/MM3 Monocytes # (Auto) 0.3 TH/MM3 Eosinophils # (Auto) 0.0 TH/MM3 Basophils # (Auto) 0.0 TH/MM3 CBC Comment AUTO DIFF Differential Comment AUTO DIFF CONFIRMED Platelet Estimate NORMAL Platelet Morphology Comment NORMAL Tear Drop Cells 1+ Ovalocytes 1+ Prothrombin Time 10.4 SEC Prothromb Time International Ratio 1.0 RATIO Activated Partial Thromboplast Time 25.1 SEC Blood Urea Nitrogen 16 MG/DL 15 MG/DL Creatinine 1.42 MG/DL 1.02 MG/DL Random Glucose 400 MG/DL 208 MG/DL Total Protein 7.8 GM/DL Albumin 3.9 GM/DL Calcium Level 9.5 MG/DL 8.2 MG/DL Alkaline Phosphatase 108 U/L Aspartate Amino Transf (AST/SGOT) 31 U/L Alanine Aminotransferase (ALT/SGPT) 47 U/L Total Bilirubin 0.4 MG/DL Sodium Level 136 MEQ/L 140 MEQ/L Potassium Level 4.3 MEQ/L 4.0 MEQ/L Chloride Level 101 MEQ/L 110 MEQ/L Carbon Dioxide Level 23.6 MEQ/L 23.4 MEQ/L Anion Gap 11 MEQ/L 7 MEQ/L Estimat Glomerular Filtration Rate 48 ML/MIN 71 ML/MIN B-Hydroxybutyrate 1.56 MMOL/L Blood Gas Puncture Site RT RADIAL Blood Gas Patient Temperature 98.6 Blood Gas HCO3 19 mmol/L Blood Gas Base Excess -4.4 mmol/L Blood Gas Oxygen Saturation 97 % Arterial Blood pH 7.41 Arterial Blood Partial Pressure CO2 31 mmHg Arterial Blood Partial Pressure O2 124 mmHG Arterial Blood Oxygen Content 15.2 Vol % Arterial Blood Carboxyhemoglobin 1.0 % Arterial Blood Methemoglobin 0.8 % Blood Gas Hemoglobin 11.0 G/DL Oxygen Delivery Device ROOM AIR Blood Gas Inspired Oxygen 21 % Total Creatine Kinase 134 U/L Troponin I LESS THAN 0.02 NG/ML Test 11/19/17 05:51 White Blood Count 3.5 TH/MM3 Red Blood Count 4.85 MIL/MM3 Hemoglobin 10.6 GM/DL Hematocrit 33.7 % Mean Corpuscular Volume 69.3 FL Mean Corpuscular Hemoglobin 21.9 PG Mean Corpuscular Hemoglobin Concent 31.5 % Red Cell Distribution Width 19.3 % Platelet Count 155 TH/MM3 Mean Platelet Volume 11.7 FL Neutrophils (%) (Auto) 43.3 % Lymphocytes (%) (Auto) 46.6 % Monocytes (%) (Auto) 8.3 % Eosinophils (%) (Auto) 1.2 % Basophils (%) (Auto) 0.6 % Neutrophils # (Auto) 1.5 TH/MM3 Lymphocytes # (Auto) 1.7 TH/MM3 Monocytes # (Auto) 0.3 TH/MM3 Eosinophils # (Auto) 0.0 TH/MM3 Basophils # (Auto) 0.0 TH/MM3 CBC Comment AUTO DIFF Differential Comment AUTO DIFF CONFIRMED Platelet Estimate NORMAL Platelet Morphology Comment ENLARGED Ovalocytes 1+ Blood Urea Nitrogen 11 MG/DL Creatinine 0.81 MG/DL Random Glucose 140 MG/DL Total Protein 6.0 GM/DL Albumin 3.2 GM/DL Calcium Level 8.3 MG/DL Phosphorus Level 4.0 MG/DL Magnesium Level 1.9 MG/DL Alkaline Phosphatase 82 U/L Aspartate Amino Transf (AST/SGOT) 20 U/L Alanine Aminotransferase (ALT/SGPT) 32 U/L Total Bilirubin 0.4 MG/DL Sodium Level 141 MEQ/L Potassium Level 3.7 MEQ/L Chloride Level 110 MEQ/L Carbon Dioxide Level 20.3 MEQ/L Anion Gap 11 MEQ/L Estimat Glomerular Filtration Rate 92 ML/MIN Total Creatine Kinase 114 U/L Troponin I LESS THAN 0.02 NG/ML Free Thyroxine 1.06 NG/DL Thyroid Stimulating Hormone 3rd Gen 0.483 uIU/ML Imaging Last Impressions Head CT 11/18/17 0000 Signed Impressions: Service Date/Time: Saturday, November 18, 2017 18:52 - CONCLUSION: No acute disease. Mendel Johnson MD Objective Remarks GENERAL: Awake alert and oriented 3 talkative and cooperative SKIN: Warm and dry. HEAD: Atraumatic. Normocephalic. EYES: Pupils equal and round. No scleral icterus. No injection or drainage. extraocular muscles intact ENT: No nasal bleeding or discharge. Mucous membranes pink and moist. Tongue is midline NECK: Trachea midline. No JVD. neck is supple CARDIOVASCULAR: Regular rate and rhythm. S1-S2 no S3 or S4 no heave or thrill or rub or gallop RESPIRATORY: No accessory muscle use. Clear to auscultation. Breath sounds equal bilaterally. GASTROINTESTINAL: Abdomen soft, non-tender, nondistended. Hepatic and splenic margins not palpable. Obese MUSCULOSKELETAL: Extremities without clubbing, cyanosis, or edema. No obvious deformities. NEUROLOGICAL: Awake and alert. No obvious cranial nerve deficits. Motor grossly within normal limits. Five out of 5 muscle strength in the arms and legs. Normal speech. PSYCHIATRIC: Appropriate mood and affect; insight and judgment normal. Procedures none Medications and IVs Current Medications Sodium Chloride 1,000 ml @ 1,000 mls/hr Q1H IV Last administered on 11/18/17at 16:20; Start 11/18/17 at 15:27; Stop 11/18/17 at 16:26; Status DC Sodium Chloride (NS Flush) 2 ml UNSCH PRN IV FLUSH FLUSH AFTER USING IV ACCESS Last administered on 11/18/17at 16:21; Start 11/18/17 at 15:30; Stop 11/18/17 at 19:13; Status DC Insulin Human Regular (NovoLIN R INJ) 8 units ONCE ONCE IV PUSH Last administered on 11/18/17at 18:33; Start 11/18/17 at 17:45; Stop 11/18/17 at 17:46 ; Status DC Sodium Chloride 1,000 ml @ 999 mls/hr BOLUS ONCE IV Last administered on 11/18at 18:32; Start 11/18/17 at 17:45; Stop 11/18/17 at 18:45; Status DC Sodium Chloride 1,000 ml @ 250 mls/hr Q4H IV Last administered on 11/18/17at 19 :54; Start 11/18/17 at 17:36; Stop 11/18/17 at 20:45; Status DC Dextrose/Sodium Chloride 1,000 ml @ 200 mls/hr Q5H IV ; Start 11/18/17 at 17:36 ; Stop 11/18/17 at 20:44; Status DC Insulin Human Regular 100 units/ Sodium Chloride 100 ml @ 9 mls/hr TITRATE PRN IV Blood Sugar Management; Start 11/18/17 at 17:45; Stop 11/18/17 at 19:10; Status DC Potassium Chloride 100 ml @ 50 mls/hr Q2H PRN IV SEE LABEL COMMENTS; Start at 17:45; Stop 11/18/17 at 20:45; Status DC Potassium Chloride 100 ml @ 50 mls/hr Q2H PRN IV SEE LABEL COMMENTS; Start at 17:45; Stop 11/18/17 at 20:44; Status DC Potassium Chloride 100 ml @ 50 mls/hr Q2H PRN IV SEE LABEL COMMENTS Last administered on 11/18/17at 18:35; Start 11/18/17 at 17:45; Stop 11/18/17 at 20:45 ; Status DC Potassium Chloride 100 ml @ 50 mls/hr Q2H PRN IV SEE LABEL COMMENTS; Start at 17:45; Stop 11/18/17 at 20:45; Status DC Dextrose (D50w (Vial) Inj) 50 ml UNSCH PRN IV PUSH HYPOGLYCEMIA-SEE COMMENTS; Start 11/18/17 at 18:30; Stop 11/18/17 at 22:37; Status DC Glucagon (Glucagon Inj) 1 mg UNSCH PRN OTHER HYPOGLYCEMIA-SEE COMMENTS; Start 11/18/17 at 18:30; Stop 11/18/17 at 22:37; Status DC Insulin Human Regular 100 units/ Sodium Chloride 100 ml @ 0.5 mls/hr TITRATE PRN IV Blood Glucose Control; Start 11/18/17 at 18:30; Stop 11/18/17 at 22:40; Status DC Dextrose (D50w (Vial) Inj) 50 ml UNSCH PRN IV PUSH SEE LABEL COMMENTS; Start at 18:30; Stop 11/18/17 at 22:37; Status DC Miscellaneous Information 1 ONCE ONCE OTHER ; Start 11/18/17 at 18:30; Stop at 19:11; Status DC Sodium Chloride 1,000 ml @ 150 mls/hr Q6H40M IV Last administered on at 00:35; Start 11/18/17 at 18:32 Sodium Chloride (NS Flush) 2 ml UNSCH PRN IV FLUSH FLUSH AFTER USING IV ACCESS ; Start 11/18/17 at 18:45 Sodium Chloride (NS Flush) 2 ml BID IV FLUSH Last administered on 11/18/17at 21: 13; Start 11/18/17 at 21:00 Acetaminophen (Tylenol) 650 mg Q4H PRN PO TEMP > 100.4; Start 11/18/17 at 18:45 Ondansetron HCl (Zofran Inj) 4 mg Q6H PRN IVP NAUSEA OR VOMITING Last administered on 11/19/17at 07:53; Start 11/18/17 at 18:45 Prochlorperazine (Compazine Supp) 25 mg Q12H PRN RECTAL NAUSEA OR VOMITING; Start 11/18/17 at 18:45 Zolpidem Tartrate (Ambien) 5 mg HS PRN PO INSOMNIA; Start 11/18/17 at 18:45 Enoxaparin Sodium (Lovenox Inj) 40 mg Q24H SQ ; Start 11/18/17 at 20:00 Acetaminophen (Tylenol) 650 mg Q6H PRN PO PAIN SCALE 1 TO 2; Start 11/18/17 at 18:45 Oxycodone/ Acetaminophen (Percocet 5-325 Mg) 1 tab Q6H PRN PO PAIN SCALE 3 TO 5; Start 11/18/17 at 18:45 Oxycodone/ Acetaminophen (Percocet 10-325 Mg) 1 tab Q6H PRN PO PAIN SCALE 6 TO 10 Last administered on 11/19/17at 07:53; Start 11/18/17 at 18:45 Morphine Sulfate (Morphine Inj) 2 mg Q3H PRN IV PUSH Pain 3-5; if unable to take PO; Start 11/18/17 at 18:45 Morphine Sulfate (Morphine Inj) 4 mg Q3H PRN IV PUSH Pain 6-10;if unable to take PO; Start 11/18/17 at 19:15 Morphine Sulfate (Morphine Inj) 4 mg Q3H PRN IV PUSH BREAKTHROUGH PAIN; Start 11/18/17 at 19:15 Naloxone HCl (Narcan Inj) 0.4 mg UNSCH PRN IV PUSH SEE LABEL COMMENTS; Start at 18:45 Senna/Docusate Sodium (Marie-Colace) 1 tab BID PO Last administered on at 21:14; Start 11/18/17 at 21:00 Magnesium Hydroxide (Milk Of Magnesia Liq) 30 ml Q12H PRN PO Mild constipation ; Start 11/18/17 at 18:45 Sennosides (Senokot) 17.2 mg Q12H PRN PO Moderate constipation; Start 11/18/17 at 18:45 Bisacodyl (Dulcolax Supp) 10 mg DAILY PRN RECTAL SEVERE CONSITIPATION; Start at 18:45 Lactulose (Lactulose Liq) 30 ml DAILY PRN PO SEVERE CONSITIPATION; Start at 18:45 Ergocalciferol (Drisdol) 50,000 units Q7D PO ; Start 11/23/17 at 09:00 Famotidine (Pepcid) 10 mg BID PO Last administered on 11/18/17at 21:14; Start at 21:00 Miscellaneous (Pill Splitter) 1 ea UNSCH PRN OTHER SEE LABEL COMMENTS; Start at 19:15 Dextrose (D50w (Vial) Inj) 50 ml UNSCH PRN IV PUSH HYPOGLYCEMIA-SEE COMMENTS; Start 11/18/17 at 20:45 Glucagon (Glucagon Inj) 1 mg UNSCH PRN OTHER HYPOGLYCEMIA-SEE COMMENTS; Start 11/18/17 at 20:45 Insulin Aspart (NovoLOG SUPPLEMENTAL SCALE) 1 ACHS SLIDING SCALE SQ Last administered on 3/28/18at 21:14; Start 11/18/17 at 21:00 A/P Problem List: (1) Hyperglycemia ICD Code: R73.9 - Hyperglycemia, unspecified (2) Hyperglycemia due to type 2 diabetes mellitus ICD Code: E11.65 - Type 2 diabetes mellitus with hyperglycemia (3) Hypertension ICD Code: I10 - Essential (primary) hypertension (4) Renal insufficiency ICD Code: N28.9 - Disorder of kidney and ureter, unspecified (5) CKD (chronic kidney disease) stage 2, GFR 60-89 ml/min ICD Code: N18.2 - Chronic kidney disease, stage 2 (mild) (6) Obese ICD Code: E66.9 - Obesity, unspecified (7) Noncompliance ICD Code: Z91.19 - Patient's noncompliance with other medical treatment and regimen Assessment and Plan Uncontrolled diabetes due to noncompliance of medication Continue on IV fluids 200 mL's per hour of normal saline Switch to metformin 500 twice daily Renal insufficiency continue on IV fluids Dehydration continue on IV fluids Hypertension have available Catapres and hold her lisinopril due to renal insufficiency-can restart her lisinopril now that this is improved Vitamin D deficiency continue home medication Will probably need to be started on p.o. glycemic medications will either glipizide or Glucotrol DVT prophylaxis with heparin GI prophylaxis with Pepcid Discharge Planning Pending ability to tolerate a diet Rj Herrera DO Nov 19, 2017 10:56
[2017-11-19 12:00] VITALS: BP 124/80; PULSE 81; RESP 15; TEMP 97.5; O2SAT 100
[2017-11-19] MEDS ORDERED: LISINOPRIL 10 MG TAB PO ONE (12:00)
[2017-11-19] MEDS ORDERED: metFORMIN HCL 500 MG TAB PO ONE (12:00)
--- NOTE | 2017-11-19 12:20 | EKG ---
Date Performed: 11/18/2017 Time Performed: 19:19:14 PTAGE: 47 years EKG: Sinus rhythm NORMAL ECG NO PREVIOUS TRACING DOCTOR: Ruben Henry Interpretating Date/Time 11/19/2017 12:16:47
[2017-11-19 14:48] LABS: HEMOGLOBIN A1C 10.6 % (4.3-6.0)
[2017-11-19 15:26] LABS: HEMOGLOBIN A1C 10.7 % (4.3-6.0)
[2017-11-19] MEDS ORDERED: metFORMIN HCL 500 MG TAB PO SCH (18:00)
[2017-11-19 20:08] VITALS: BP 129/76; PULSE 85; RESP 20; TEMP 97; O2SAT 100
[2017-11-19 20:22] VITALS: O2SAT 95
[2017-11-19] MEDS: ENOXAPARIN SODIUM 40 MG/0.4 ML SYRINGE SQ SCH (21:03)
[2017-11-20] VITALS: BP 127/78; PULSE 70; RESP 20; TEMP 96.5; O2SAT 100
[2017-11-20] MEDS: SODIUM CHLOR 0.9% 1000 ML INJ 1,000 ML IV SCH ×2 (03:59→09:47)
[2017-11-20 08:00] VITALS: BP 133/87; PULSE 90; RESP 16; TEMP 97.1; O2SAT 100
[2017-11-20] MEDS ORDERED: LISINOPRIL 10 MG TAB PO SCH (09:00)
[2017-11-20] MEDS ORDERED: metFORMIN HCL 500 MG TAB PO SCH (09:00)
[2017-11-20] MEDS: SODIUM CHLORIDE 0.9% FLUSH 10 ML FLUSH IV FLUSH SCH (09:00)
[2017-11-20] MEDS: FAMOTIDINE 20 MG TAB PO SCH (09:52)
[2017-11-20] MEDS: INSULIN ASPART SUPPLEMENTAL SCALE SQ SCH ×2 (09:52→13:08)
[2017-11-20] MEDS: DOCUSATE SODIUM 50 MG/SENNA 8.6 MG TAB PO SCH (09:53)
[2017-11-20 11:54] LABS: AUTOMATED NEUTROPHIL # 2.9 TH/MM3 (1.8-7.7); BASOPHIL % 0.2 % (0.0-2.0); EOSINOPHIL % 0.9 % (0.0-4.0); HEMATOCRIT 37.1 % (35.0-46.0); HEMOGLOBIN 11.7 GM/DL (11.6-15.3); LYMPH % 30.2 % (9.0-44.0); LYMPHOCYTE # 1.4 TH/MM3 (1.0-4.8); MEAN CELL VOLUME 70.5 FL (80.0-100.0); MEAN CORPUSCULAR HEMOGLOBIN 22.1 PG (27.0-34.0); MEAN CORPUSCULAR HGB CONC 31.4 % (32.0-36.0); MEAN PLATELET VOLUME 11.3 FL (7.0-11.0); MONO % 6.7 % (0.0-8.0); MONOCYTE # 0.3 TH/MM3 (0-0.9); PLATELET COUNT 161 TH/MM3 (150-450); RED BLOOD COUNT 5.27 MIL/MM3 (4.00-5.30); RED CELL DISTRIBUTION WIDTH 19.3 % (11.6-17.2); WHITE BLOOD COUNT 4.7 TH/MM3 (4.0-11.0)
[2017-11-20 12:18] LABS: ALBUMIN 3.5 GM/DL (3.4-5.0); ALT (GPT) 34 U/L (10-53); AST (GOT) 16 U/L (15-37); BICARBONATE 20.8 MEQ/L (21.0-32.0); BLOOD UREA NITROGEN 10 MG/DL (7-18); CALCIUM 8.6 MG/DL (8.5-10.1); CHLORIDE 107 MEQ/L (98-107); CREATININE 0.95 MG/DL (0.50-1.00); GLOMERULAR FILTRATION RATE 77 ML/MIN (>89); GLUCOSE,RANDOM 258 MG/DL (74-106); MAGNESIUM 1.9 MG/DL (1.5-2.5); PHOSPHORUS 2.1 MG/DL (2.5-4.9); SODIUM (NA) 138 MEQ/L (136-145)
[2017-11-20 12:23] LABS: ALKALINE PHOSPHATASE 94 U/L (45-117); TOTAL BILIRUBIN ADULT 0.4 MG/DL (0.2-1.0); TOTAL PROTEIN 6.9 GM/DL (6.4-8.2)
[2017-11-20 12:55] VITALS: BP 129/75; PULSE 82; RESP 16; TEMP 97.7; O2SAT 100
[2017-11-20 12:58] LABS: OVALOCYTES 1+ (NORMAL)
--- NOTE | 2017-11-20 15:25 | HHI.PR ---
Subjective Remarks Patient is a 47-year-old -[place] female who presented to the emergency department for evaluation of at least a week history of decreased concentration , intermittent dizziness and mild nausea. Patient is a known diabetic and has not been taking any medication for the past few months. She also complains of urinary urgency. Also complains of a bug bite sustained for 4 days ago while staying in a hotel. Patient denies any headache she denies any visual changes denies any fever denies any chills denies any chest pain denies any palpitations denies any shortness of breath denies any abdominal pain denies any back pain denies any vaginal discharge denies any weakness of extremities. Patient states she is traveling between [place] in [place] for training for work has moved down here from [place] recently Had been on 2 diabetic medications which he stopped and was taking lisinopril possibly 10 mg daily as well as a vitamin D Patient will be placed on an insulin drip as well as lots of fluids. Hopefully her hyperglycemia will improve tomorrow and possibly can be placed on glipizide or Glucotrol for her diabetes and be sent home in the next 11-19 patient cannot tell me what her allergy is to metformin We will discontinue it as an allergy We will start her on metformin 500 twice daily we will see how her sugars run today and if she can tolerate a diet Have discussed with patient and RN and family 11-20 patient wants to go home does not want to take metformin HGBA1C IS 10.7 NOT CONTROLLED WANTS TO GO HOME DC ON GLUCOTROL 5MG PO BID AND RESUME HOME MED DW RN AND PT Objective Vitals Vital Signs Date Time Temp Pulse Resp B/P (MAP) Pulse Ox O2 Delivery O2 Flow Rate FiO2 11/20/17 08:00 97.1 90 16 133/87 (102) 100 11/20/17 00:00 96.5 70 20 127/78 (94) 100 11/19/17 20:22 95 21 11/19/17 20:08 97.0 85 20 129/76 (93) 100 I/O 11/19/17 11/19/17 11/19/17 11/20/17 11/20/17 11/20/17 07:00 15:00 23:00 07:00 15:00 23:00 Intake Total 750 ml 2930 ml 240 ml Balance 750 ml 2930 ml 240 ml Intake Oral 680 ml 240 ml IV Total 750 ml 2250 ml # Voids 6 # Bowel Movements 1 Result Diagram: 11/20/17 1130 11/20/17 1130 Other Results Laboratory Tests Test 11/18/17 16:00 11/18/17 16:13 11/18/17 18:15 11/18/17 21:45 Urine Color LIGHT-YELLOW Urine Turbidity CLEAR Urine pH 5.0 Urine Specific [place] 1.033 Urine Protein NEG mg/dL Urine Glucose (UA) 1000 mg/dL Urine Ketones 40 mg/dL Urine Occult Blood NEG Urine Nitrite NEG Urine Bilirubin NEG Urine Urobilinogen LESS THAN 2.0 MG/DL Urine Leukocyte Esterase NEG Urine RBC 1 /hpf Urine WBC LESS THAN 1 /hpf Urine Squamous Epithelial Cells <1 /hpf Urine Amorphous Sediment RARE Microscopic Urinalysis Comment CULT NOT INDICATED White Blood Count 4.6 TH/MM3 Red Blood Count 5.64 MIL/MM3 Hemoglobin 12.5 GM/DL Hematocrit 39.8 % Mean Corpuscular Volume 70.6 FL Mean Corpuscular Hemoglobin 22.1 PG Mean Corpuscular Hemoglobin Concent 31.3 % Red Cell Distribution Width 19.4 % Platelet Count 172 TH/MM3 Mean Platelet Volume 10.8 FL Neutrophils (%) (Auto) 58.4 % Lymphocytes (%) (Auto) 34.3 % Monocytes (%) (Auto) 6.1 % Eosinophils (%) (Auto) 0.6 % Basophils (%) (Auto) 0.6 % Neutrophils # (Auto) 2.7 TH/MM3 Lymphocytes # (Auto) 1.6 TH/MM3 Monocytes # (Auto) 0.3 TH/MM3 Eosinophils # (Auto) 0.0 TH/MM3 Basophils # (Auto) 0.0 TH/MM3 CBC Comment AUTO DIFF Differential Comment AUTO DIFF CONFIRMED Platelet Estimate NORMAL Platelet Morphology Comment NORMAL Tear Drop Cells 1+ Ovalocytes 1+ Prothrombin Time 10.4 SEC Prothromb Time International Ratio 1.0 RATIO Activated Partial Thromboplast Time 25.1 SEC Blood Urea Nitrogen 16 MG/DL 15 MG/DL Creatinine 1.42 MG/DL 1.02 MG/DL Random Glucose 400 MG/DL 208 MG/DL Total Protein 7.8 GM/DL Albumin 3.9 GM/DL Calcium Level 9.5 MG/DL 8.2 MG/DL Alkaline Phosphatase 108 U/L Aspartate Amino Transf (AST/SGOT) 31 U/L Alanine Aminotransferase (ALT/SGPT) 47 U/L Total Bilirubin 0.4 MG/DL Sodium Level 136 MEQ/L 140 MEQ/L Potassium Level 4.3 MEQ/L 4.0 MEQ/L Chloride Level 101 MEQ/L 110 MEQ/L Carbon Dioxide Level 23.6 MEQ/L 23.4 MEQ/L Anion Gap 11 MEQ/L 7 MEQ/L Estimat Glomerular Filtration Rate 48 ML/MIN 71 ML/MIN Hemoglobin A1c 10.7 % B-Hydroxybutyrate 1.56 MMOL/L Blood Gas Puncture Site RT RADIAL Blood Gas Patient Temperature 98.6 Blood Gas HCO3 19 mmol/L Blood Gas Base Excess -4.4 mmol/L Blood Gas Oxygen Saturation 97 % Arterial Blood pH 7.41 Arterial Blood Partial Pressure CO2 31 mmHg Arterial Blood Partial Pressure O2 124 mmHG Arterial Blood Oxygen Content 15.2 Vol % Arterial Blood Carboxyhemoglobin 1.0 % Arterial Blood Methemoglobin 0.8 % Blood Gas Hemoglobin 11.0 G/DL Oxygen Delivery Device ROOM AIR Blood Gas Inspired Oxygen 21 % Total Creatine Kinase 134 U/L Troponin I LESS THAN 0.02 NG/ML Test 11/19/17 05:51 11/20/17 11:30 White Blood Count 3.5 TH/MM3 4.7 TH/MM3 Red Blood Count 4.85 MIL/MM3 5.27 MIL/MM3 Hemoglobin 10.6 GM/DL 11.7 GM/DL Hematocrit 33.7 % 37.1 % Mean Corpuscular Volume 69.3 FL 70.5 FL Mean Corpuscular Hemoglobin 21.9 PG 22.1 PG Mean Corpuscular Hemoglobin Concent 31.5 % 31.4 % Red Cell Distribution Width 19.3 % 19.3 % Platelet Count 155 TH/MM3 161 TH/MM3 Mean Platelet Volume 11.7 FL 11.3 FL Neutrophils (%) (Auto) 43.3 % 62.0 % Lymphocytes (%) (Auto) 46.6 % 30.2 % Monocytes (%) (Auto) 8.3 % 6.7 % Eosinophils (%) (Auto) 1.2 % 0.9 % Basophils (%) (Auto) 0.6 % 0.2 % Neutrophils # (Auto) 1.5 TH/MM3 2.9 TH/MM3 Lymphocytes # (Auto) 1.7 TH/MM3 1.4 TH/MM3 Monocytes # (Auto) 0.3 TH/MM3 0.3 TH/MM3 Eosinophils # (Auto) 0.0 TH/MM3 0.0 TH/MM3 Basophils # (Auto) 0.0 TH/MM3 0.0 TH/MM3 CBC Comment AUTO DIFF AUTO DIFF Differential Comment AUTO DIFF CONFIRMED AUTO DIFF CONFIRMED Platelet Estimate NORMAL NORMAL Platelet Morphology Comment ENLARGED ENLARGED Ovalocytes 1+ 1+ Blood Urea Nitrogen 11 MG/DL 10 MG/DL Creatinine 0.81 MG/DL 0.95 MG/DL Random Glucose 140 MG/DL 258 MG/DL Total Protein 6.0 GM/DL 6.9 GM/DL Albumin 3.2 GM/DL 3.5 GM/DL Calcium Level 8.3 MG/DL 8.6 MG/DL Phosphorus Level 4.0 MG/DL 2.1 MG/DL Magnesium Level 1.9 MG/DL 1.9 MG/DL Alkaline Phosphatase 82 U/L 94 U/L Aspartate Amino Transf (AST/SGOT) 20 U/L 16 U/L Alanine Aminotransferase (ALT/SGPT) 32 U/L 34 U/L Total Bilirubin 0.4 MG/DL 0.4 MG/DL Sodium Level 141 MEQ/L 138 MEQ/L Potassium Level 3.7 MEQ/L 3.6 MEQ/L Chloride Level 110 MEQ/L 107 MEQ/L Carbon Dioxide Level 20.3 MEQ/L 20.8 MEQ/L Anion Gap 11 MEQ/L 10 MEQ/L Estimat Glomerular Filtration Rate 92 ML/MIN 77 ML/MIN Hemoglobin A1c 10.6 % Total Creatine Kinase 114 U/L Troponin I LESS THAN 0.02 NG/ML Free Thyroxine 1.06 NG/DL Thyroid Stimulating Hormone 3rd Gen 0.483 uIU/ML Imaging Last Impressions Head CT 11/18/17 0000 Signed Impressions: Service Date/Time: Saturday, November 18, 2017 18:52 - CONCLUSION: No acute disease. Mendel Johnson MD Objective Remarks GENERAL: Awake alert and oriented 3 talkative and cooperative SKIN: Warm and dry. HEAD: Atraumatic. Normocephalic. EYES: Pupils equal and round. No scleral icterus. No injection or drainage. extraocular muscles intact ENT: No nasal bleeding or discharge. Mucous membranes pink and moist. Tongue is midline NECK: Trachea midline. No JVD. neck is supple CARDIOVASCULAR: Regular rate and rhythm. S1-S2 no S3 or S4 no heave or thrill or rub or gallop RESPIRATORY: No accessory muscle use. Clear to auscultation. Breath sounds equal bilaterally. GASTROINTESTINAL: Abdomen soft, non-tender, nondistended. Hepatic and splenic margins not palpable. Obese MUSCULOSKELETAL: Extremities without clubbing, cyanosis, or edema. No obvious deformities. NEUROLOGICAL: Awake and alert. No obvious cranial nerve deficits. Motor grossly within normal limits. Five out of 5 muscle strength in the arms and legs. Normal speech. PSYCHIATRIC: Appropriate mood and affect; insight and judgment normal. Procedures none Medications and IVs Current Medications Sodium Chloride 1,000 ml @ 1,000 mls/hr Q1H IV Last administered on 11/18/17at 16:20; Start 11/18/17 at 15:27; Stop 11/18/17 at 16:26; Status DC Sodium Chloride (NS Flush) 2 ml UNSCH PRN IV FLUSH FLUSH AFTER USING IV ACCESS Last administered on 11/18/17at 16:21; Start 11/18/17 at 15:30; Stop 11/18/17 at 19:13; Status DC Insulin Human Regular (NovoLIN R INJ) 8 units ONCE ONCE IV PUSH Last administered on 11/18/17at 18:33; Start 11/18/17 at 17:45; Stop 11/18/17 at 17:46 ; Status DC Sodium Chloride 1,000 ml @ 999 mls/hr BOLUS ONCE IV Last administered on 11/18at 18:32; Start 11/18/17 at 17:45; Stop 11/18/17 at 18:45; Status DC Sodium Chloride 1,000 ml @ 250 mls/hr Q4H IV Last administered on 11/18/17at 19 :54; Start 11/18/17 at 17:36; Stop 11/18/17 at 20:45; Status DC Dextrose/Sodium Chloride 1,000 ml @ 200 mls/hr Q5H IV ; Start 11/18/17 at 17:36 ; Stop 11/18/17 at 20:44; Status DC Insulin Human Regular 100 units/ Sodium Chloride 100 ml @ 9 mls/hr TITRATE PRN IV Blood Sugar Management; Start 11/18/17 at 17:45; Stop 11/18/17 at 19:10; Status DC Potassium Chloride 100 ml @ 50 mls/hr Q2H PRN IV SEE LABEL COMMENTS; Start at 17:45; Stop 11/18/17 at 20:45; Status DC Potassium Chloride 100 ml @ 50 mls/hr Q2H PRN IV SEE LABEL COMMENTS; Start at 17:45; Stop 11/18/17 at 20:44; Status DC Potassium Chloride 100 ml @ 50 mls/hr Q2H PRN IV SEE LABEL COMMENTS Last administered on 11/18/17at 18:35; Start 11/18/17 at 17:45; Stop 11/18/17 at 20:45 ; Status DC Potassium Chloride 100 ml @ 50 mls/hr Q2H PRN IV SEE LABEL COMMENTS; Start at 17:45; Stop 11/18/17 at 20:45; Status DC Dextrose (D50w (Vial) Inj) 50 ml UNSCH PRN IV PUSH HYPOGLYCEMIA-SEE COMMENTS; Start 11/18/17 at 18:30; Stop 11/18/17 at 22:37; Status DC Glucagon (Glucagon Inj) 1 mg UNSCH PRN OTHER HYPOGLYCEMIA-SEE COMMENTS; Start 11/18/17 at 18:30; Stop 11/18/17 at 22:37; Status DC Insulin Human Regular 100 units/ Sodium Chloride 100 ml @ 0.5 mls/hr TITRATE PRN IV Blood Glucose Control; Start 11/18/17 at 18:30; Stop 11/18/17 at 22:40; Status DC Dextrose (D50w (Vial) Inj) 50 ml UNSCH PRN IV PUSH SEE LABEL COMMENTS; Start at 18:30; Stop 11/18/17 at 22:37; Status DC Miscellaneous Information 1 ONCE ONCE OTHER ; Start 11/18/17 at 18:30; Stop at 19:11; Status DC Sodium Chloride 1,000 ml @ 150 mls/hr Q6H40M IV Last administered on at 09:47; Start 11/18/17 at 18:32 Sodium Chloride (NS Flush) 2 ml UNSCH PRN IV FLUSH FLUSH AFTER USING IV ACCESS ; Start 11/18/17 at 18:45 Sodium Chloride (NS Flush) 2 ml BID IV FLUSH Last administered on 11/18/17at 21: 13; Start 11/18/17 at 21:00 Acetaminophen (Tylenol) 650 mg Q4H PRN PO TEMP > 100.4; Start 11/18/17 at 18:45 Ondansetron HCl (Zofran Inj) 4 mg Q6H PRN IVP NAUSEA OR VOMITING Last administered on 11/19/17at 21:12; Start 11/18/17 at 18:45 Prochlorperazine (Compazine Supp) 25 mg Q12H PRN RECTAL NAUSEA OR VOMITING; Start 11/18/17 at 18:45 Zolpidem Tartrate (Ambien) 5 mg HS PRN PO INSOMNIA; Start 11/18/17 at 18:45 Enoxaparin Sodium (Lovenox Inj) 40 mg Q24H SQ ; Start 11/18/17 at 20:00 Acetaminophen (Tylenol) 650 mg Q6H PRN PO PAIN SCALE 1 TO 2; Start 11/18/17 at 18:45 Oxycodone/ Acetaminophen (Percocet 5-325 Mg) 1 tab Q6H PRN PO PAIN SCALE 3 TO 5; Start 11/18/17 at 18:45 Oxycodone/ Acetaminophen (Percocet 10-325 Mg) 1 tab Q6H PRN PO PAIN SCALE 6 TO 10 Last administered on 11/19/17at 07:53; Start 11/18/17 at 18:45 Morphine Sulfate (Morphine Inj) 2 mg Q3H PRN IV PUSH Pain 3-5; if unable to take PO; Start 11/18/17 at 18:45 Morphine Sulfate (Morphine Inj) 4 mg Q3H PRN IV PUSH Pain 6-10;if unable to take PO; Start 11/18/17 at 19:15 Morphine Sulfate (Morphine Inj) 4 mg Q3H PRN IV PUSH BREAKTHROUGH PAIN; Start 11/18/17 at 19:15 Naloxone HCl (Narcan Inj) 0.4 mg UNSCH PRN IV PUSH SEE LABEL COMMENTS; Start at 18:45 Senna/Docusate Sodium (Marie-Colace) 1 tab BID PO Last administered on at 09:53; Start 11/18/17 at 21:00 Magnesium Hydroxide (Milk Of Magnesia Liq) 30 ml Q12H PRN PO Mild constipation ; Start 11/18/17 at 18:45 Sennosides (Senokot) 17.2 mg Q12H PRN PO Moderate constipation; Start 11/18/17 at 18:45 Bisacodyl (Dulcolax Supp) 10 mg DAILY PRN RECTAL SEVERE CONSITIPATION; Start at 18:45 Lactulose (Lactulose Liq) 30 ml DAILY PRN PO SEVERE CONSITIPATION; Start at 18:45 Ergocalciferol (Drisdol) 50,000 units Q7D PO ; Start 11/23/17 at 09:00 Famotidine (Pepcid) 10 mg BID PO Last administered on 11/20/17at 09:52; Start at 21:00 Miscellaneous (Pill Splitter) 1 ea UNSCH PRN OTHER SEE LABEL COMMENTS; Start at 19:15 Dextrose (D50w (Vial) Inj) 50 ml UNSCH PRN IV PUSH HYPOGLYCEMIA-SEE COMMENTS; Start 11/18/17 at 20:45 Glucagon (Glucagon Inj) 1 mg UNSCH PRN OTHER HYPOGLYCEMIA-SEE COMMENTS; Start 11/18/17 at 20:45 Insulin Aspart (NovoLOG SUPPLEMENTAL SCALE) 1 ACHS SLIDING SCALE SQ Last administered on 11/20/17at 13:08; Start 11/18/17 at 21:00 Metformin HCl (Glucophage) 500 mg BIDPC PO Last administered on 11/19/17at 17:31 ; Start 11/19/17 at 18:00; Stop 11/20/17 at 08:40; Status DC Metformin HCl (Glucophage) 500 mg ONCE ONCE PO Last administered on 11/19/17at 12:30; Start 11/19/17 at 12:00; Stop 11/19/17 at 12:16; Status DC Lisinopril (Prinivil) 10 mg DAILY PO Last administered on 11/20/17at 09:54; Start 11/20/17 at 09:00 Lisinopril (Prinivil) 10 mg ONCE ONCE PO Last administered on 11/19/17at 12:30 ; Start 11/19/17 at 12:00; Stop 11/19/17 at 12:16; Status DC Metformin HCl (Glucophage) 1,000 mg BIDPC PO Last administered on 11/20/17at 09: 53; Start 11/20/17 at 09:00 A/P Problem List: (1) Hyperglycemia ICD Code: R73.9 - Hyperglycemia, unspecified (2) Hyperglycemia due to type 2 diabetes mellitus ICD Code: E11.65 - Type 2 diabetes mellitus with hyperglycemia (3) Hypertension ICD Code: I10 - Essential (primary) hypertension (4) Renal insufficiency ICD Code: N28.9 - Disorder of kidney and ureter, unspecified (5) CKD (chronic kidney disease) stage 2, GFR 60-89 ml/min ICD Code: N18.2 - Chronic kidney disease, stage 2 (mild) (6) Obese ICD Code: E66.9 - Obesity, unspecified (7) Noncompliance ICD Code: Z91.19 - Patient's noncompliance with other medical treatment and regimen Assessment and Plan Uncontrolled diabetes due to noncompliance of medication Continue on IV fluids 200 mL's per hour of normal saline Switch to GLUCOTROL 5MG twice daily Renal insufficiency continue on IV fluids Dehydration continue on IV fluids Hypertension have available Catapres and hold her lisinopril due to renal insufficiency-can restart her lisinopril now that this is improved Vitamin D deficiency continue home medication Will probably need to be started on p.o. glycemic medications will either glipizide or Glucotrol DVT prophylaxis with heparin GI prophylaxis with Pepcid CAN FOLLOW UP WITH PCP SOON POSSIBLE HGBA1C WAS 10.7 DC TO HOME TODAY Discharge Planning TOLERATING A DIET DC TO HOME TODAY Rj Herrera DO Nov 20, 2017 15:25
[2017-11-20] MEDS ORDERED: VITA400T14 PO (15:29)
[2017-11-20] MEDS ORDERED: FAMO20TA2 PO (15:29)
[2017-11-20] MEDS ORDERED: SENN187 PO (15:29)
[2017-11-20] MEDS ORDERED: GLIP5TAB8 PO (15:29)
[2017-11-20] MEDS ORDERED: LISI10TA3 PO (15:29)
--- NOTE | 2017-11-20 15:32 | HHI.DS ---
Discharge Summary Admission Date Nov 18, 2017 at 18:36 Discharge Date: Nov 20, 2017 Admitting Diagnosis hyperglycemia (1) Hyperglycemia ICD Code: R73.9 - Hyperglycemia, unspecified Diagnosis: Principal (2) Hyperglycemia due to type 2 diabetes mellitus ICD Code: E11.65 - Type 2 diabetes mellitus with hyperglycemia Diagnosis: Principal (3) Hypertension ICD Code: I10 - Essential (primary) hypertension Diagnosis: Secondary (4) Renal insufficiency ICD Code: N28.9 - Disorder of kidney and ureter, unspecified Diagnosis: Principal (5) CKD (chronic kidney disease) stage 2, GFR 60-89 ml/min ICD Code: N18.2 - Chronic kidney disease, stage 2 (mild) Diagnosis: Principal (6) Obese ICD Code: E66.9 - Obesity, unspecified Diagnosis: Secondary (7) Noncompliance ICD Code: Z91.19 - Patient's noncompliance with other medical treatment and regimen Diagnosis: Principal Procedures none Brief History - From Admission Patient is a 47-year-old -[place] female who presented to the emergency department for evaluation of at least a week history of decreased concentration , intermittent dizziness and mild nausea. Patient is a known diabetic and has not been taking any medication for the past few months. She also complains of urinary urgency. Also complains of a bug bite sustained for 4 days ago while staying in a hotel. Patient denies any headache she denies any visual changes denies any fever denies any chills denies any chest pain denies any palpitations denies any shortness of breath denies any abdominal pain denies any back pain denies any vaginal discharge denies any weakness of extremities. 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 Hopefully her hyperglycemia will improve tomorrow and possibly can be placed on glipizide or Glucotrol for her diabetes and be sent home in the next 24-48 CBC/BMP: 11/20/17 1130 11/20/17 1130 Significant Findings Laboratory Tests Test 11/18/17 16:00 11/18/17 16:13 11/18/17 18:15 11/18/17 21:45 Urine Glucose (UA) 1000 mg/dL (NEG) Urine Ketones 40 mg/dL (NEG) Red Blood Count 5.64 MIL/MM3 (4.00-5.30) Mean Corpuscular Volume 70.6 FL (80.0-100.0) Mean Corpuscular Hemoglobin 22.1 PG (27.0-34.0) Mean Corpuscular Hemoglobin Concent 31.3 % (32.0-36.0) Red Cell Distribution Width 19.4 % (11.6-17.2) Tear Drop Cells 1+ (NORMAL) Ovalocytes 1+ (NORMAL) Creatinine 1.42 MG/DL (0.50-1.00) 1.02 MG/DL (0.50-1.00) Random Glucose 400 MG/DL (74-106) 208 MG/DL (74-106) Estimat Glomerular Filtration Rate 48 ML/MIN (>89) 71 ML/MIN (>89) Hemoglobin A1c 10.7 % (4.3-6.0) B-Hydroxybutyrate 1.56 MMOL/L (0.00-0.39) Blood Gas HCO3 19 mmol/L (22-26) Blood Gas Base Excess -4.4 mmol/L (-2-2) Arterial Blood Partial Pressure CO2 31 mmHg (38-42) Arterial Blood Partial Pressure O2 124 mmHG (61-120) Blood Gas Hemoglobin 11.0 G/DL (12.0-16.0) Calcium Level 8.2 MG/DL (8.5-10.1) Chloride Level 110 MEQ/L (98-107) Troponin I LESS THAN 0.02 NG/ML Test 11/19/17 05:51 11/20/17 11:30 White Blood Count 3.5 TH/MM3 (4.0-11.0) Hemoglobin 10.6 GM/DL (11.6-15.3) Hematocrit 33.7 % (35.0-46.0) Mean Corpuscular Volume 69.3 FL (80.0-100.0) 70.5 FL (80.0-100.0) Mean Corpuscular Hemoglobin 21.9 PG (27.0-34.0) 22.1 PG (27.0-34.0) Mean Corpuscular Hemoglobin Concent 31.5 % (32.0-36.0) 31.4 % (32.0-36.0) Red Cell Distribution Width 19.3 % (11.6-17.2) 19.3 % (11.6-17.2) Mean Platelet Volume 11.7 FL (7.0-11.0) 11.3 FL (7.0-11.0) Lymphocytes (%) (Auto) 46.6 % (9.0-44.0) Monocytes (%) (Auto) 8.3 % (0.0-8.0) Neutrophils # (Auto) 1.5 TH/MM3 (1.8-7.7) Platelet Morphology Comment ENLARGED (NORMAL) ENLARGED (NORMAL) Ovalocytes 1+ (NORMAL) 1+ (NORMAL) Random Glucose 140 MG/DL (74-106) 258 MG/DL (74-106) Total Protein 6.0 GM/DL (6.4-8.2) Albumin 3.2 GM/DL (3.4-5.0) Calcium Level 8.3 MG/DL (8.5-10.1) Chloride Level 110 MEQ/L (98-107) Carbon Dioxide Level 20.3 MEQ/L (21.0-32.0) 20.8 MEQ/L (21.0-32.0) Hemoglobin A1c 10.6 % (4.3-6.0) Troponin I LESS THAN 0.02 NG/ML Phosphorus Level 2.1 MG/DL (2.5-4.9) Estimat Glomerular Filtration Rate 77 ML/MIN (>89) Imaging Last Impressions Head CT 11/18/17 0000 Signed Impressions: Service Date/Time: Saturday, November 18, 2017 18:52 - CONCLUSION: No acute disease. Mendel Johnson MD PE at Discharge GENERAL: Awake alert and oriented 3 talkative and cooperative SKIN: Warm and dry. HEAD: Atraumatic. Normocephalic. EYES: Pupils equal and round. No scleral icterus. No injection or drainage. extraocular muscles intact ENT: No nasal bleeding or discharge. Mucous membranes pink and moist. Tongue is midline NECK: Trachea midline. No JVD. neck is supple CARDIOVASCULAR: Regular rate and rhythm. S1-S2 no S3 or S4 no heave or thrill or rub or gallop RESPIRATORY: No accessory muscle use. Clear to auscultation. Breath sounds equal bilaterally. GASTROINTESTINAL: Abdomen soft, non-tender, nondistended. Hepatic and splenic margins not palpable. Obese MUSCULOSKELETAL: Extremities without clubbing, cyanosis, or edema. No obvious deformities. NEUROLOGICAL: Awake and alert. No obvious cranial nerve deficits. Motor grossly within normal limits. Five out of 5 muscle strength in the arms and legs. Normal speech. PSYCHIATRIC: Appropriate mood and affect; insight and judgment normal. Hospital Course Patient is a 47-year-old -[place] female who presented to the emergency department for evaluation of at least a week history of decreased concentration , intermittent dizziness and mild nausea. Patient is a known diabetic and has not been taking any medication for the past few months. She also complains of urinary urgency. Also complains of a bug bite sustained for 4 days ago while staying in a hotel. Patient denies any headache she denies any visual changes denies any fever denies any chills denies any chest pain denies any palpitations denies any shortness of breath denies any abdominal pain denies any back pain denies any vaginal discharge denies any weakness of extremities. 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 Hopefully her hyperglycemia will improve tomorrow and possibly can be placed on glipizide or Glucotrol for her diabetes and be sent home in the next 3 patient cannot tell me what her allergy is to metformin We will discontinue it as an allergy We will start her on metformin 500 twice daily we will see how her sugars run today and if she can tolerate a diet Have discussed with patient and RN and family 11-20 patient wants to go home does not want to take metformin HGBA1C IS 10.7 NOT CONTROLLED WANTS TO GO HOME DC ON GLUCOTROL 5MG PO BID AND RESUME HOME MED VASILE RN AND PT Pt Condition on Discharge: Good Discharge Disposition: Discharge Home Discharge Time: <= 30 minutes Discharge Instructions DIET: Follow Instructions for: Heart Healthy Diet, Diabetic Diet Speech Therapy-Diet Recommends: Regular Activities you can perform: Regular-No Restrictions Follow up Referrals: PCP Follow-up - 11/21/17 New Medications: Glipizide (Glipizide) 5 Mg Tab 5 MG PO BIDAC for Blood Sugar Management, #60 TAB 0 Refills Take 30 minutes before a meal Famotidine (Famotidine) 20 Mg Tab 10 MG PO BID for Heartburn Management, #62 TAB Sennosides (Senna-Lax) 8.6 Mg Tab 17.2 MG PO Q12H PRN for Moderate constipation, #120 TAB Continued Medications: Ergocalciferol (Vitamin D2) 400 Unit Tab 85425 UNITS PO WEEKLY for Nutritional Supplement, #5 TAB 0 Refills (This prescription has been renewed) Lisinopril (Lisinopril) 10 Mg Tab 10 MG PO DAILY for Blood Pressure Management, #30 TAB 0 Refills (This prescription has been renewed) Rj Herrera DO Nov 20, 2017 15:32
[2017-11-23] MEDS ORDERED: ERGOCALCIFEROL (VIT D2) 50,000 UNIT CAP PO SCH (09:00)
== END 2017-11-20 19:13 | disposition home or self-care (01) | DRG 639 ==
LOC: NEPE 10:38 → NEDA 17:45 → OBSVTOIN 18:36 → HOCA 22:35 → N06A 11-20 13:03
PROVIDERS: ADMIT Hospitalist; ATTEND Hospitalist
DX: E11.65 Type 2 diabetes mellitus with hyperglycemia (principal); E11.22 Type 2 diabetes mellitus with diabetic chronic kidney disease; I12.9 Hypertensive chronic kidney disease with stage 1 through stage 4 chronic kidney disease, or unspecified chronic kidney disease; N18.2 Chronic kidney disease, stage 2 (mild); E86.0 Dehydration; E55.9 Vitamin D deficiency, unspecified; E66.9 Obesity, unspecified; Z68.39 Body mass index [BMI] 39.0-39.9, adult; Z91.14 Patient's other noncompliance with medication regimen
CPT/HCPCS: 36600; 70450; 80048; 80053; 81001; 82010; 82550; 82805; 82948; 83036; 83735; 84100; 84439; 84443; 84484; 84703; 85025; 85610; 85730; 93005; 96360; J1815; J2405; J3480; J7030